=== PATIENT | male | born 1955 | race Caucasian/White ===

== ENCOUNTER 2017-06-10 08:22 | Day surgery (SDC) | payer MEDICAID ==
[~2017-06-10 08:22] MED LIST: Sodium Chloride 0.9% 1,000 ML IV SCH
[2017-06-10] MEDS ORDERED: Acetylcysteine 600 MG, Water For Injection,Sterile 57 ML ONE ×2 (09:15)
[2017-06-10] MEDS ORDERED: Propofol 200 MG/20 ML SDV ONE (09:16)
[2017-06-10] MEDS ORDERED: fentaNYL 100 MCG/2 ML SDV ONE (09:17)
[2017-06-10] MEDS ORDERED: Midazolam 1 MG/ML 2 ML SDV ONE (09:17)
[2017-06-10] MEDS ORDERED: Alum Hydrox/Mag Hydrox/Simeth 360 ML, Lidocaine 2% 60 ML PO SCH ×2 (11:00)
--- NOTE | 2017-06-11 09:38 | OR ---
DATE OF PROCEDURE: 06/10/2017 PROCEDURE: Barrx radiofrequency ablation of distal esophagus. FINDINGS: A 4 cm area of metaplasia noted with several islands of metaplasia, total area of 4 cm, ranging from approximately 40-36 cm. COMPLICATIONS: None. BUILDING MAINTENANCE TECHNICIAN: None. ANESTHESIA: MAC. RISKS: Risks, benefits, alternatives, limitations including, but not limited to infection, bleeding, and perforation, along with chronic pain were explained to the patient, who wished to proceed. PROCEDURE IN DETAIL: The patient was placed in left lateral decubitus position. The EGD scope was introduced and advanced atraumatically into the second part of the duodenum. At the aforementioned 40 and 36 cm FREDERICK and TGF locations, the area was identified. [id number] device will be used for this procedure. This was performed by Mucomyst injection first, then removal of this, and then advancing under direct guidance only wire. The scope was then removed. The 360 was introduced to approximately 38 cm. This was followed by the scope. This was advanced to approximately 1 cm proximal to the proximal point. Suction was applied, energy was applied, and the probe was deployed. This was then removed. The scraping device was then introduced, and the remnant material was then removed. This was then irrigated. The procedure was then repeated a second time. No abnormalities were noted after this. The patient tolerated the procedure well. Yordy Allen MD /[id number]
== END 2017-06-10 11:21 | disposition home or self-care (01) ==
LOC: JP.SDS 08:22
PROVIDERS: ATTEND Surgery
DX: K22.70 Barrett's esophagus without dysplasia (principal); I10 Essential (primary) hypertension; K21.9 Gastro-esophageal reflux disease without esophagitis; E66.9 Obesity, unspecified
CPT/HCPCS: 43270; A9270; C1713; C1886; J2250; J2704; J3010; J7040; J7030

== ENCOUNTER 2017-08-05 08:24 | Day surgery (SDC) | payer MEDICAID ==
[~2017-08-05 08:24] MED LIST changes: +Bupivacaine 0.5% 50 ML MDV ONE; +Lidocaine 1% with EPINEPHrine 1:100,000 50 ML MDV ONE; +Lidocaine 2% Jelly 10 ML Urojet ONE; +Midazolam 1 MG/ML 2 ML SDV ONE; +Propofol 200 MG/20 ML SDV ONE; -Sodium Chloride 0.9% 1,000 ML IV SCH; +fentaNYL 100 MCG/2 ML SDV ONE
[2017-08-05] MEDS ORDERED: Lactated Ringers 1,000 ML IV SCH (08:45)
[2017-08-05] MEDS ORDERED: Propofol 200 MG/20 ML SDV ONE (09:21)
[2017-08-05] MEDS ORDERED: Acetylcysteine 600 MG, Water For Injection,Sterile 57 ML ONE ×2 (09:30)
[2017-08-05] MEDS ORDERED: Alum Hydrox/Mag Hydrox/Simeth 360 ML, Lidocaine 2% 60 ML PO PRN ×2 (10:40)
--- NOTE | 2017-08-06 09:40 | OR ---
DATE OF PROCEDURE: 08/05/2017 PROCEDURES: 1. Johnson's esophagus, distal esophagus. 2. Internal hemorrhoid banding. COMPLICATIONS: None. TORCH OPERATOR: None. PREOPERATIVE DIAGNOSIS: Johnson's esophagus and prolapsing internal hemorrhoids. POSTOPERATIVE DIAGNOSIS: Johnson's esophagus and prolapsing internal hemorrhoids. RISKS: Risks, benefits, alternatives, limitations including, but not limited to infection, bleeding, and perforation, chronic wound formation and other risks not listed here were explained to the patient and wished to proceed. PROCEDURE IN DETAIL: The patient was placed in left lateral decubitus position. The EGD scope was introduced and advanced atraumatically into the stomach. The area of Johnson's esophagus was inspected again, and the top of the gastric folds was at 43 cm; the top of the intestinal metaplasia was at 40 cm. Using a 360 balloon type device, the probe was deployed in a standard fashion. This was deployed by introducing a wire under direct visualization then advancing the Johnson's probe to approximately 1 cm proximal to the Johnson's area. Of note, Mucomyst was used prior to this. The blue pedal was applied, after suction was applied, and then energy deployment was performed. The balloon was then removed, and the scraping device was then utilized. After this, the energy was then deployed a second time with good success. This was performed in same manner, using the same sequence and the same equipment. Device, wire, and scope were then all removed. The patient was then rotated and an internal hemorrhoid banding was performed. This was performed by introducing the anoscope device, grasping the internal hemorrhoids, and banding without difficulty. The patient tolerated the procedure well. Yordy Allen MD /[id number]
== END 2017-08-05 11:07 | disposition home or self-care (01) ==
LOC: JP.SDS 08:24
PROVIDERS: ATTEND Surgery
DX: K22.70 Barrett's esophagus without dysplasia (principal); K64.8 Other hemorrhoids; I10 Essential (primary) hypertension; K21.9 Gastro-esophageal reflux disease without esophagitis; E66.9 Obesity, unspecified
CPT/HCPCS: 43270; 46945; A9270; C1713; C1886; J2250; J2704; J3010; J7120

== ENCOUNTER 2017-10-28 08:24 | Day surgery (SDC) | payer MEDICAID ==
[2017-10-28] MEDS ORDERED: Sodium Chloride 0.9% 1,000 ML IV SCH (09:30)
[2017-10-28] MEDS ORDERED: fentaNYL 100 MCG/2 ML SDV ONE (09:35)
[2017-10-28] MEDS ORDERED: Midazolam 1 MG/ML 2 ML SDV ONE (09:35)
[2017-10-28] MEDS ORDERED: Propofol 200 MG/20 ML SDV ONE ×3 (09:43→10:19)
[2017-10-28] MEDS ORDERED: Acetylcysteine 600 MG, Water For Injection,Sterile 57 ML ONE ×2 (10:15)
[2017-10-28] MEDS ORDERED: Alum Hydrox/Mag Hydrox/Simeth 360 ML, Lidocaine 2% 60 ML PO PRN ×2 (11:32)
--- NOTE | 2017-10-28 12:35 | OR ---
DATE OF PROCEDURE: 10/28/2017 PROCEDURES: 1. Barrx radiofrequency ablation. 2. Internal hemorrhoid banding. COMPLICATIONS: None. CIGARETTE SELLER: None. PREOPERATIVE DIAGNOSES: 1. Johnson's esophagus. 2. Prominent prolapsing hemorrhoids. POSTOPERATIVE DIAGNOSES: 1. Johnson's esophagus. 2. Prominent prolapsing hemorrhoids. RISKS: Risks, benefits, and alternatives of both procedures were explained to the patient including infection, bleeding, perforation, requirement for reoperation, and chronic pain. PROCEDURE IN DETAIL: The patient was placed in a left lateral decubitus position. The EGD scope was introduced and advanced atraumatically to the second part of the duodenum. The Johnson's was noted to be only 2 small focal areas, which were small and less than 1 cm in size. The top of the gastric fold was noted at 30 through the top, the intestinal metaplasia was noted at 40; therefore, a focal ablator would be used at this procedure. Mucomyst was injected and the focal ablator was used to ablate 2 respective areas in a 360 fashion times x2. Scraping was performed between the 2 procedures. The air was removed. The device was removed. The patient tolerated both parts of the procedure well. The external hemorrhoid was then banded by introducing an anoscope. The common hemorrhoid was identified and banded without difficulty. The patient tolerated the procedure well. Yordy Allen MD /[id number]
== END 2017-10-28 12:26 | disposition home or self-care (01) ==
LOC: JP.SDS 08:24
PROVIDERS: ATTEND Surgery
DX: K22.70 Barrett's esophagus without dysplasia (principal); K64.8 Other hemorrhoids; I10 Essential (primary) hypertension; K21.9 Gastro-esophageal reflux disease without esophagitis
CPT/HCPCS: 43270; 46221; A9270; J2250; J2704; J3010; J7030